=== PATIENT | male | born 1955 | race Caucasian/White ===

== ENCOUNTER 2018-03-07 16:03 | Emergency (ER) | payer MEDICARE, OTHER ==
[~2018-03-07] VITALS: Ht 188 cm; Wt 117.9 kg
[2018-03-07 16:56] LABS: BASOPHILS ABSOLUTE AUTO 0.07 K/mm3 (0.00-0.23); BASOPHILS PERCENT AUTO 1 % (0-2); EOSINOPHILS ABSOLUTE AUTO 0.23 K/mm3 (0.00-0.68); EOSINOPHILS PERCENT AUTO 3 % (0-6); Hematocrit 39.5 % (37.0-53.0); Hemoglobin 12.9 g/dL (13.5-17.5); IMMATURE GRAN ABSOLUTE AUTO 0.02 K/mm3 (0.00-0.10); IMMATURE GRAN PERCENT AUTO 0 % (0-1); LYMPHOCYTES ABSOLUTE AUTO 0.58 K/mm3 (0.84-5.20); LYMPHOCYTES PERCENT AUTO 7 % (21-46); MONOCYTES ABSOLUTE AUTO 0.62 K/mm3 (0.16-1.47); MONOCYTES PERCENT AUTO 7 % (4-13); Mean Corpuscular HGB 28.6 pg (26.0-34.0); Mean Corpuscular HGB Conc 32.7 g/dL (31.5-36.5); Mean Corpuscular Volume 88 fL (80-100); Mean Platelet Volume 9.8 fL (9.1-12.4); NEUTROPHILS PERCENT AUTO 82 % (41-73); Platelet Count 281 K/mm3 (150-400); RDW Coefficient Variation 12.7 % (11.7-14.2); RDW Standard Deviation 40.5 fL (35.1-46.3); Red Blood Cell Count 4.51 M/mm3 (4.30-5.90); White Blood Cell Count 8.42 K/mm3 (4.00-11.30)
[2018-03-07 17:21] LABS: Alanine Aminotransfer (ALT/SGP 24 U/L (12-78); Albumin, Blood 3.9 g/dL (3.4-5.0); Albumin/Globulin Ratio 1.1 (0.8-1.8); Alk Phos 78 U/L (50-136); Anion Gap 9 mmol/L (6-16); Aspartate Aminotrans (AST/SGOT 18 U/L (12-37); Bilirubin, Total 0.6 mg/dL (0.1-1.0); Blood Urea Nitrogen 10 mg/dL (8-24); Bun/Creatinine Ratio 13.4 (12.0-20.0); CO2, Blood 26 mmol/L (21-32); Calcium, Blood 8.5 mg/dL (8.5-10.1); Chloride, Blood 103 mmol/L (98-108); Creatinine, Blood 0.75 mg/dL (0.60-1.20); Globulin, Blood 3.7 g/dL (2.2-4.0); Glomerular Filtration Rate >60 (60-); Glucose, Blood 118 mg/dL (70-99); Sodium, Blood 138 mmol/L (136-145); Total Protein, Blood 7.6 g/dL (6.4-8.2)
[2018-03-07 17:25] LABS: Source, Urine Clean Catch
[2018-03-07 17:32] LABS: Appearance, Urine Clear (Clear); Bilirubin, Urine Neg (Neg); Blood, Urine Neg (Neg); Color, Urine Yellow (P-Yellow); Glucose Qualitative, Urine Neg (Neg); Ketones, Urine Neg (Neg); Leukocyte Esterase, Urine Neg (Neg); Nitrite, Urine Neg (Neg); Protein, Urine Neg (Neg); Specific Gravity, Urine 1.005 (1.003-1.022); Urobilinogen, Urine NORM (Normal)
[2018-03-07] MEDS ORDERED: LEVFLO500 PO (20:42)
== END 2018-03-07 20:55 | disposition home or self-care (01) ==
LOC: ER 16:03
PROVIDERS: Emergency Medicine
DX: J44.0 Chronic obstructive pulmonary disease with (acute) lower respiratory infection (principal); J20.9 Acute bronchitis, unspecified; I10 Essential (primary) hypertension; Z90.81 Acquired absence of spleen
CPT/HCPCS: 36415; 71046; 80053; 81003; 83605; 85025; 93005; 93010; 99284-25

== ENCOUNTER 2019-01-30 08:29 | Day surgery (SDC) | payer MEDICARE, OTHER ==
[~2019-01-30] VITALS: Ht 185.4 cm; Wt 122.3 kg
[~2019-01-30 08:29] MED LIST: ALBU3IS INH; ALBU90OI INH; BENZ100A PO; Cheratussin AC118 ML PO; IBUP800 PO; INCRUSE ELLI62.5 MCG INH; LEVFLO500 PO; PANT40 PO; Prednisone20 MG PO; XYZAL5 MG PO; ZESTORETIC 20-121 EA; ZESTORETIC 20-121 EA PO
== END 2019-01-30 11:40 | disposition home or self-care (01) ==
LOC: ORSCSDS 08:29
PROVIDERS: Internal Medicine Gastroenterology
PROC: 0DB68ZX Excision of Stomach, Via Natural or Artificial Opening Endoscopic, Diagnostic (ICD-10-PCS; principal; 2019-01-30 10:15)
PROC: 0DB58ZX Excision of Esophagus, Via Natural or Artificial Opening Endoscopic, Diagnostic (ICD-10-PCS; principal; 2019-01-30 10:15)
DX: K21.0 Gastro-esophageal reflux disease with esophagitis (principal); K29.70 Gastritis, unspecified, without bleeding; R10.9 Unspecified abdominal pain; K57.30 Diverticulosis of large intestine without perforation or abscess without bleeding; K64.1 Second degree hemorrhoids; I10 Essential (primary) hypertension; J44.9 Chronic obstructive pulmonary disease, unspecified; E66.01 Morbid (severe) obesity due to excess calories; Z68.35 Body mass index [BMI] 35.0-35.9, adult; Z79.899 Other long term (current) drug therapy
CPT/HCPCS: 88305; 88342; J2001; J2704; J7120

== ENCOUNTER 2019-12-14 08:36 | Emergency (ER) | payer MEDICARE, OTHER ==
[~2019-12-14] VITALS: Ht 185.4 cm; Wt 122.5 kg
[2019-12-14] MEDS ORDERED: BENZ100A PO (11:13)
== END 2019-12-14 11:22 | disposition home or self-care (01) ==
LOC: ER 08:36
DX: R05 Cough (principal); R06.02 Shortness of breath; I10 Essential (primary) hypertension; J44.9 Chronic obstructive pulmonary disease, unspecified; Z79.899 Other long term (current) drug therapy; Z79.51 Long term (current) use of inhaled steroids
CPT/HCPCS: 71045; 99284-25; U0003

== ENCOUNTER → 2020-09-25 | Outpatient (CLI) | payer MEDICARE, OTHER ==
[2020-09-25 12:58] LABS: Source, Urine Clean Catch
[2020-09-25 17:58] LABS: Appearance, Urine Clear (Clear); Bilirubin, Urine Neg (Neg); Blood, Urine Neg (Neg); Color, Urine Yellow (P-Yellow); Glucose Qualitative, Urine Neg (Neg); Ketones, Urine Neg (Neg); Leukocyte Esterase, Urine Neg (Neg); Nitrite, Urine Neg (Neg); Protein, Urine Neg (Neg); Urobilinogen, Urine NORM (Normal)
== END | disposition home or self-care (01) ==
LOC: LAB 12:55
PROVIDERS: Nurse Practitioner Family
DX: I10 Essential (primary) hypertension (principal)
CPT/HCPCS: 81003

== ENCOUNTER 2021-03-10 17:42 | Inpatient (IN) | payer MEDICARE, OTHER ==
[~2021-03-10] VITALS: Ht 185.4 cm; Wt 122.6 kg
[~2021-03-10 17:42] MED LIST changes: -ASPI81CH PO; -ATOR80 PO; -CARV3.125 PO; -FLUTICASONE PRO16 GM; -IBU800 M1 PO; -Incruse Ellipta 62.5 INH; -LISINOPRIL-HCT1 EACH PO; -PANTOPRAZOLE SO40 M2 PO; -PLAVIX75 MG PO; -Ventolin/Prove6.7 GM INH
[2021-03-10] MEDS ORDERED: Ventolin/Prove6.7 GM INH (18:56)
[2021-03-10] MEDS ORDERED: FLUTICASONE PRO16 GM (18:56)
[2021-03-10] MEDS ORDERED: IBU800 M1 PO (18:56)
[2021-03-10] MEDS ORDERED: Incruse Ellipta 62.5 INH (18:57)
[2021-03-10] MEDS ORDERED: LISINOPRIL-HCT1 EACH PO (18:57)
[2021-03-10] MEDS ORDERED: PANTOPRAZOLE SO40 M2 PO (18:57)
[2021-03-10 19:17] LABS: BASOPHILS ABSOLUTE AUTO 0.06 K/mm3 (0.00-0.23); BASOPHILS PERCENT AUTO 1 % (0-2); EOSINOPHILS PERCENT AUTO 2 % (0-6); Hematocrit 37.2 % (37.0-53.0); Hemoglobin 12.3 g/dL (13.5-17.5); IMMATURE GRAN ABSOLUTE AUTO 0.05 K/mm3 (0.00-0.10); IMMATURE GRAN PERCENT AUTO 0 % (0-1); LYMPHOCYTES ABSOLUTE AUTO 2.61 K/mm3 (0.84-5.20); LYMPHOCYTES PERCENT AUTO 23 % (21-46); MONOCYTES ABSOLUTE AUTO 0.88 K/mm3 (0.16-1.47); MONOCYTES PERCENT AUTO 8 % (4-13); Mean Corpuscular HGB 29.3 pg (26.0-34.0); Mean Corpuscular HGB Conc 33.1 g/dL (31.5-36.5); Mean Corpuscular Volume 89 fL (80-100); Mean Platelet Volume 10.2 fL (9.1-12.4); NEUTROPHILS PERCENT AUTO 67 % (41-73); Platelet Count 326 K/mm3 (150-400); RDW Coefficient Variation 13.1 % (11.7-14.2); RDW Standard Deviation 42.4 fL (35.1-46.3)
[2021-03-10 19:34] LABS: International Normalized Ratio 0.98; Prothrombin Time Results 10.6 Sec (9.7-11.5)
[2021-03-10 19:52] LABS: Alanine Aminotransfer (ALT/SGP 24 U/L (12-78); Albumin, Blood 3.6 g/dL (3.4-5.0); Alk Phos 74 U/L (50-136); Anion Gap 1 mmol/L (6-16); Aspartate Aminotrans (AST/SGOT 19 U/L (12-37); Bilirubin, Total 0.2 mg/dL (0.1-1.0); Blood Urea Nitrogen 20 mg/dL (8-24); CO2, Blood 28 mmol/L (21-32); Calcium, Blood 8.6 mg/dL (8.5-10.1); Chloride, Blood 111 mmol/L (98-108); Creatinine, Blood 0.87 mg/dL (0.60-1.20); Globulin, Blood 3.5 g/dL (2.2-4.0); Glomerular Filtration Rate >60 (60-); Glucose, Blood 111 mg/dL (70-99); Potassium, Blood 4.2 mmol/L (3.5-5.5); Sodium, Blood 140 mmol/L (136-145); Total Protein, Blood 7.1 g/dL (6.4-8.2)
[2021-03-10 20:35] LABS: Troponin I 0.621 ng/mL (0.000-0.040)
[2021-03-10 21:54] LABS: CHOL/HDL RATIO 6.4; Cholesterol 218 mg/dL (50-200); HDL Cholesterol 34 mg/dL (>39); LDL/HDL RATIO 3.9; Low Density Lipoprotein Chol 134 mg/dL (0-110); Triglycerides 252 mg/dL (30-160); Very Low Density Lipoprot Chol 50 mg/dL (6-32)
[2021-03-10 23:36] LABS: International Normalized Ratio 1.01; Prothrombin Time Results 10.9 Sec (9.7-11.5)
--- NOTE | 2021-03-11 07:09 | NUR ---
SUMMARY PT IS A&O X4, ON RA, VSS. DENIES CP/PRESSURE SINCE ADMISSION. PT HAS BEEN STARTED ON A HEPARIN GTT PER EMAR. HE IS INDEPENDENT IN THE ROOM, VOIDING WNL, NPO SINCE MIDNIGHT, CARDIOLOGY CONSULT TO BE CALLED THIS AM. HOSPITALIST NOTIFIED OF INCREASED TROPONIN OF 1.65 THROUGH THE HTE NIGHT, NO CHANGE IN PT'S CONDITION. REPORT GIVEN TO DAY RN, PT IS AWAKE, RESTING IN BED, CALL LIGHT IN REACH.
[2021-03-11 08:10] LABS: BASOPHILS ABSOLUTE AUTO 0.07 K/mm3 (0.00-0.23); BASOPHILS PERCENT AUTO 1 % (0-2); EOSINOPHILS ABSOLUTE AUTO 0.26 K/mm3 (0.00-0.68); EOSINOPHILS PERCENT AUTO 3 % (0-6); Hematocrit 37.9 % (37.0-53.0); Hemoglobin 12.4 g/dL (13.5-17.5); IMMATURE GRAN ABSOLUTE AUTO 0.04 K/mm3 (0.00-0.10); IMMATURE GRAN PERCENT AUTO 0 % (0-1); LYMPHOCYTES PERCENT AUTO 28 % (21-46); MONOCYTES ABSOLUTE AUTO 0.73 K/mm3 (0.16-1.47); MONOCYTES PERCENT AUTO 7 % (4-13); Mean Corpuscular HGB 28.7 pg (26.0-34.0); Mean Corpuscular HGB Conc 32.7 g/dL (31.5-36.5); Mean Corpuscular Volume 88 fL (80-100); Mean Platelet Volume 9.6 fL (9.1-12.4); NEUTROPHILS ABSOLUTE AUTO 6.02 K/mm3 (1.96-9.15); NEUTROPHILS PERCENT AUTO 61 % (41-73); Platelet Count 303 K/mm3 (150-400); RDW Coefficient Variation 13.1 % (11.7-14.2); RDW Standard Deviation 42.3 fL (35.1-46.3); Red Blood Cell Count 4.32 M/mm3 (4.30-5.90); White Blood Cell Count 9.92 K/mm3 (4.00-11.30)
[2021-03-11 08:35] LABS: Anion Gap 4 mmol/L (6-16); Blood Urea Nitrogen 18 mg/dL (8-24); Bun/Creatinine Ratio 25.2 (12.0-20.0); CO2, Blood 29 mmol/L (21-32); Calcium, Blood 8.5 mg/dL (8.5-10.1); Chloride, Blood 108 mmol/L (98-108); Creatinine, Blood 0.71 mg/dL (0.60-1.20); Glomerular Filtration Rate >60 (60-); Glucose, Blood 99 mg/dL (70-99); Potassium, Blood 3.9 mmol/L (3.5-5.5); Sodium, Blood 141 mmol/L (136-145)
--- NOTE | 2021-03-11 12:00 | NUR ---
PT REPORTS 6/10 CHEST PAIN/PRESSURE TO HIS SUBSTERNAL CHEST, RADIATING TO HIS LEFT SHOULDER, ARM AND BACK. SEE DOCUMENTED VITAL SIGNS. NIRTO GIVEN PER EMAR. MOBILE HOME LOT UTILITY WORKER MADE AWARE BY ERIKA, GRILL ATTENDANT. WILL CONTINUE TO MONITOR AND REASSESS.
--- NOTE | 2021-03-11 12:15 | NUR ---
UPDATE PT STATES CP IS /10 AND JUST FEELS LIKE "TIGHTNESS". PLAN FOR PT TO GO TO [facility] [employer] [facility]. WILL CONTINUE TO MONITOR CLOSELY. AT [facility].
--- NOTE | 2021-03-11 18:09 | NUR ---
SHIFT SUMMARY PT ALERT AND ORIENTED. VS STABLE. O2 SATS REMAIN ABOVE 90% ON RA. HR NSR. PT RETURNED FROM THE MAIL PROCESSING MACHINE OPERATOR AFTER TWO STENTS PLACED WITH RIGHT RADIAL SITE AND TR BAND IN PLACE. NO SIGNS OF BLEEDING, BRUISING, OR HEMATOMA. ARM BOARD IN PLACE. PT EDUCATED ON ARM RESTRICTIONS. AGGRASTAT WAS INFUSING UPON RETURN FROM THE MAIL PROCESSING MACHINE OPERATOR THAT WAS STARTED AT 1527 AND STOPPED AT [address] GARCIA. NS INFUSING PER ORDERS. PT COMPLAINED OF SEVERE BACK PAIN UPON RETURN AND WAS MEDICATED PER EMAR AND HEATING PAD PLACED TO BACK. WILL CONTINUE TO MONITOR CLOSELY AND REPORT TO ONCOMING RN. CALL LIGHT IN REACH.
--- NOTE | 2021-03-11 23:10 | NUR ---
PATIENT STATES THAT WHEN HE RETURNED TO BED FROM THE BATHROOM AT APPROX 0, HE FELT "A LITTLE LIGHTHEADED AND NAUSEAS". HE DIDN'T CALL BECAUSE "I DIDN'T WANT TO BOTHER YOU." STATES THAT HE STILL FEELS "A LITTLE NAUSEAS." DID NOT WANT MEDICATIONS. GAVE HIM ASHWIN MIST PER HIS REQUEST. HE DENIED LIGHTHEADEDNESS AT THIS TIME. HIS HEART RATE DID GO UP TO THE LOW 100'S WHEN HE WAS UP IN THE BATHROOM. ENCOURAGED HIM TO CALL NEXT TIME HE NEEDED TO GET UP AND I WOULD GO WITH HIM.
--- NOTE | 2021-03-12 03:00 | NUR ---
PATIENT UP TO BATHROOM WITH SBA. DENIED LIGHTHEADEDNESS. HEARTRATE UP TO THE 80'S. STATES THAT HE FEELS "A LITTLE" NAUSEAS. REQUESTED CRACKERS. CRACKERS GIVEN.
[2021-03-12 03:55] LABS: BASOPHILS ABSOLUTE AUTO 0.05 K/mm3 (0.00-0.23); BASOPHILS PERCENT AUTO 0 % (0-2); EOSINOPHILS ABSOLUTE AUTO 0.19 K/mm3 (0.00-0.68); EOSINOPHILS PERCENT AUTO 2 % (0-6); Hematocrit 35.7 % (37.0-53.0); Hemoglobin 11.6 g/dL (13.5-17.5); IMMATURE GRAN ABSOLUTE AUTO 0.05 K/mm3 (0.00-0.10); IMMATURE GRAN PERCENT AUTO 0 % (0-1); LYMPHOCYTES ABSOLUTE AUTO 2.32 K/mm3 (0.84-5.20); LYMPHOCYTES PERCENT AUTO 21 % (21-46); MONOCYTES PERCENT AUTO 8 % (4-13); Mean Corpuscular HGB 28.3 pg (26.0-34.0); Mean Corpuscular HGB Conc 32.5 g/dL (31.5-36.5); Mean Corpuscular Volume 87 fL (80-100); Mean Platelet Volume 9.4 fL (9.1-12.4); NEUTROPHILS ABSOLUTE AUTO 7.68 K/mm3 (1.96-9.15); NEUTROPHILS PERCENT AUTO 69 % (41-73); Platelet Count 308 K/mm3 (150-400); RDW Standard Deviation 41.1 fL (35.1-46.3); White Blood Cell Count 11.19 K/mm3 (4.00-11.30)
--- NOTE | 2021-03-12 03:55 | NUR ---
CALLED DR. MARCUM AND NOTIFIED HER PATIENT REPORTING "BURNING" IN HIS ABDOMEN AND REQUESTING MAALOX. ORDERS RECEIVED FOR MAALOX.
[2021-03-12 04:13] LABS: Alanine Aminotransfer (ALT/SGP 23 U/L (12-78); Albumin, Blood 3.3 g/dL (3.4-5.0); Albumin/Globulin Ratio 0.9 (0.8-1.8); Alk Phos 60 U/L (50-136); Anion Gap 4 mmol/L (6-16); Aspartate Aminotrans (AST/SGOT 17 U/L (12-37); Bilirubin, Total 0.6 mg/dL (0.1-1.0); Blood Urea Nitrogen 20 mg/dL (8-24); Bun/Creatinine Ratio 25.9 (12.0-20.0); CO2, Blood 29 mmol/L (21-32); Calcium, Blood 8.3 mg/dL (8.5-10.1); Chloride, Blood 105 mmol/L (98-108); Creatinine, Blood 0.77 mg/dL (0.60-1.20); Globulin, Blood 3.5 g/dL (2.2-4.0); Glomerular Filtration Rate >60 (60-); Glucose, Blood 109 mg/dL (70-99); Potassium, Blood 3.7 mmol/L (3.5-5.5); Sodium, Blood 138 mmol/L (136-145); Total Protein, Blood 6.8 g/dL (6.4-8.2)
--- NOTE | 2021-03-12 07:54 | NUR ---
SHIFT SUMMARY: PATIENT A/OX3. MEDICATED FOR BURNING PAIN IN ABDOMEN WITH MAALOX. HAD EPISODE WHERE HE WAS LIGHTHEADED AND NAUSEAS BUT HE DID NOT REPORT THIS UNTIL APPROX 2 HOURS AFTER IT HAPPENED, AT THAT TIME HEART RATE WAS UP INTO THE LOW 100'S. HE DID NOT FEEL THIS WAY WHEN HE GOT UP TO THE BATHROOM WITH ME AT A LATER TIME. TR BAND REMOVED AND DRESSING PLACED OVER SITE, NO S/S HEMATOMA OR BLEEDING. ARMBOARD IN PLACE TO R WRIST. PATIENT NEEDS REMINDERS TO NOT USE R WRIST. POSSIBLE DISCHARGE HOME TODAY. REPORT GIVEN TO ONCOMING RN.
[2021-03-12] MEDS ORDERED: ASPI81CH PO ×2 (11:47→11:49)
[2021-03-12] MEDS ORDERED: ATOR80 PO (11:49)
[2021-03-12] MEDS ORDERED: PLAVIX75 MG PO (11:50)
[2021-03-12] MEDS ORDERED: CARV3.125 PO (11:50)
--- NOTE | 2021-03-12 12:54 | NUR ---
UPDATE PT ALERT AND ORIENTED. VS STABLE. ORDERS FOR DC RECEIVED. PT PROVIDED DC INSTRUCTIONS AND EDUCATED ON NEW MEDICATIONS. ALL QUESTIONS ANSWERED. PT TAKEN OUT BY FREEDOM
--- NOTE | 2021-03-12 13:51 | NUR ---
UPDATE 03/12/2021: PER CHART REVIEW WITH DR. COFFEY THIS AM, PT. APPROPRIATE FOR DISCHARGE HOME. DISCUSSED DISCHARGE PLANNING WITH PT. HIS WILL BE TRANSPORTING HIM HOME THIS AFTERNOON. PT. DENIED CONCERNS WITH SAFETY OR MOBILITY WITHIN THE HOME. DENIED NEED FOR DME. PT. PT. WILL NEED TO SCHEDULE HOSPITAL F/U WITHIN ONE WEEK WITH PCP. AT THAT TIME DR. COFFEY HAS RECOMMENDED DISCUSSING IBU USE. PT. STATED THAT HE IS TAKING 800 MG IBU 1-2 PER [address]N PAIN. [address] COFFEY ADIVSED PT. THAT SHE WOULD RECOMMEND THAT HE D/C THE IBU. PT. CONCERNED WITH MANAGING HIS PAIN WITHOUT THE IBU. HE STATES THAT IBU IS THE ONLY THING THAT HELPS. DR. COFFEY DID DISSCUSS THE RISKS OF CONTINUING IBU. PT. WAS ALSO ENCOURAGED TO STICK TO A LOW CARB DIET. PT. WAS REFERRED PREVIOUSLY TO [facility]. HE WOULD BENEFIT FROM ADDITIONAL INFO REGARDING DIET. UPDATE 03/11/21: PER CHART REVIEW THIS WITH DR. COFFEY, CARIOLOGY CONSULT ORDERED AND PT. WILL BE GOING TO IGNITION SPECIALIST TODAY.
== END 2021-03-12 12:21 | disposition home or self-care (01) | DRG 247 ==
LOC: ER 17:42 → PCU 21:26
PROVIDERS: Family Medicine; Pharmacist; Student in an Organized Health Care Education/Training Program; ADMIT Family Medicine
PROC: 027035Z Dilation of Coronary Artery, One Artery with Two Drug-eluting Intraluminal Devices, Percutaneous Approach (ICD-10-PCS; principal; 2021-03-11)
PROC: B2111ZZ Fluoroscopy of Multiple Coronary Arteries using Low Osmolar Contrast (ICD-10-PCS; 2021-03-11)
DX: I21.4 Non-ST elevation (NSTEMI) myocardial infarction (principal); J44.9 Chronic obstructive pulmonary disease, unspecified; I10 Essential (primary) hypertension; E78.5 Hyperlipidemia, unspecified; D72.829 Elevated white blood cell count, unspecified; D64.9 Anemia, unspecified; K21.9 Gastro-esophageal reflux disease without esophagitis; E66.9 Obesity, unspecified; Z68.34 Body mass index [BMI] 34.0-34.9, adult; Z87.891 Personal history of nicotine dependence; Z98.890 Other specified postprocedural states; Z79.899 Other long term (current) drug therapy
CPT/HCPCS: 36415; 71046; 80048; 80053; 80061; 83880; 84443; 84484; 85025; 85347; 85610; 85730; 93005; 93010; 93454; 94640; 94762; 99152; 99153; 99285-25; A9270; C1725; C1769; C1874; C1887; C1894; C8929; C9600; J1644; J2250; J2310; J3010; J3246; J7030; J7040; Q9957; Q9967

== ENCOUNTER → 2021-03-10 | Outpatient (CLI) | payer MEDICARE, OTHER ==
[~2021-03-10] MED LIST changes: +ASPI81CH PO; +ATOR80 PO; +CARV3.125 PO; +FLUTICASONE PRO16 GM; +IBU800 M1 PO; +Incruse Ellipta 62.5 INH; +LISINOPRIL-HCT1 EACH PO; +PANTOPRAZOLE SO40 M2 PO; +PLAVIX75 MG PO; +Ventolin/Prove6.7 GM INH
[2021-03-10 16:52] LABS: BASOPHILS ABSOLUTE AUTO 0.06 K/mm3 (0.00-0.23); BASOPHILS PERCENT AUTO 1 % (0-2); EOSINOPHILS ABSOLUTE AUTO 0.18 K/mm3 (0.00-0.68); EOSINOPHILS PERCENT AUTO 2 % (0-6); Hematocrit 37.8 % (37.0-53.0); Hemoglobin 12.3 g/dL (13.5-17.5); IMMATURE GRAN ABSOLUTE AUTO 0.06 K/mm3 (0.00-0.10); IMMATURE GRAN PERCENT AUTO 1 % (0-1); LYMPHOCYTES ABSOLUTE AUTO 2.15 K/mm3 (0.84-5.20); LYMPHOCYTES PERCENT AUTO 19 % (21-46); MONOCYTES ABSOLUTE AUTO 0.96 K/mm3 (0.16-1.47); MONOCYTES PERCENT AUTO 8 % (4-13); Mean Corpuscular HGB 28.3 pg (26.0-34.0); Mean Corpuscular HGB Conc 32.5 g/dL (31.5-36.5); Mean Corpuscular Volume 87 fL (80-100); Mean Platelet Volume 9.4 fL (9.1-12.4); NEUTROPHILS ABSOLUTE AUTO 8.06 K/mm3 (1.96-9.15); NEUTROPHILS PERCENT AUTO 70 % (41-73); Platelet Count 312 K/mm3 (150-400); RDW Coefficient Variation 13.1 % (11.7-14.2); RDW Standard Deviation 41.5 fL (35.1-46.3); Red Blood Cell Count 4.34 M/mm3 (4.30-5.90); White Blood Cell Count 11.47 K/mm3 (4.00-11.30)
[2021-03-10 17:16] LABS: Anion Gap 6 mmol/L (6-16); Blood Urea Nitrogen 18 mg/dL (8-24); Bun/Creatinine Ratio 18.8 (12.0-20.0); CO2, Blood 28 mmol/L (21-32); Calcium, Blood 8.3 mg/dL (8.5-10.1); Chloride, Blood 108 mmol/L (98-108); Creatinine, Blood 0.96 mg/dL (0.60-1.20); Glomerular Filtration Rate >60 (60-); Glucose, Blood 103 mg/dL (70-99); Potassium, Blood 3.9 mmol/L (3.5-5.5); Sodium, Blood 142 mmol/L (136-145); Thyroid Stimulating Hormone 2.329 uIU/mL (0.360-4.800)
== END | disposition home or self-care (01) ==
LOC: LAB SHORT 16:47 → LAB 16:47
PROVIDERS: Physician Assistant Surgical
DX: R07.9 Chest pain, unspecified (principal); R53.83 Other fatigue
CPT/HCPCS: 80048; 84443; 84484; 85025

== ENCOUNTER → 2021-10-29 | Outpatient (CLI) | payer MEDICARE, OTHER ==
[~2021-10-29] MED LIST changes: +ASPI81CH PO; +ATOR80 PO; +CARV3.125 PO; +FLUTICASONE PRO16 GM; +IBU800 M1 PO; +IPRAT-ALBUT 0.5-3 ML INH; +Incruse Ellipta 62.5 INH; +LISINOPRIL-HCT1 EACH PO; +PANTOPRAZOLE SO40 M2 PO; +PLAVIX75 MG PO; +Ventolin/Prove6.7 GM INH
[2021-10-29 14:28] LABS: Adenovirus F 40/41 Not Detected (NOT DETECT); Astrovirus Not Detected (NOT DETECT); Campylobacter Sp Not Detected (NOT DETECT); Cryptosporidium Not Detected (NOT DETECT); Cyclospora Cayetanensis Not Detected (NOT DETECT); E. Coli O157 Not Detected (NOT DETECT); Entamoeba Histolytica Not Detected (NOT DETECT); Enteroaggregative E. coli-EAEC Not Detected (NOT DETECT); Enteropathogenic E. coli-EPEC Not Detected (NOT DETECT); Enterotoxigenic E. coli-ETEC Not Detected (NOT DETECT); Giardia Lamblia Not Detected (NOT DETECT); Norovirus GI/GII Not Detected (NOT DETECT); Plesiomonas Shigelloides Not Detected (NOT DETECT); Rotavirus A Not Detected (NOT DETECT); Salmonella Sp Not Detected (NOT DETECT); Sapovirus Not Detected (NOT DETECT); Shiga Toxin-prod E. coli-STEC Not Detected (NOT DETECT); Shigella/Enteroin E. coli-EIEC Not Detected (NOT DETECT); Vibrio Cholerae Not Detected (NOT DETECT); Vibrio Sp Not Detected (NOT DETECT); Yersinia Enterocolitica Not Detected (NOT DETECT)
== END | disposition home or self-care (01) ==
LOC: LAB 09:10 → LAB SHORT 09:10 → LAB FUT 10-23 12:30
PROVIDERS: Internal Medicine Gastroenterology
DX: R19.7 Diarrhea, unspecified (principal)
CPT/HCPCS: 0097U

== ENCOUNTER 2021-11-05 11:16 | Day surgery (SDC) | payer MEDICARE, OTHER ==
[~2021-11-05] VITALS: Ht 185.4 cm; Wt 111.1 kg
== END 2021-11-05 14:35 | disposition home or self-care (01) ==
LOC: ORSCSDS 11:16
PROVIDERS: Internal Medicine Gastroenterology
PROC: 0DBE8ZX Excision of Large Intestine, Via Natural or Artificial Opening Endoscopic, Diagnostic (ICD-10-PCS; principal; 2021-11-05 13:00)
DX: R19.7 Diarrhea, unspecified (principal); K57.30 Diverticulosis of large intestine without perforation or abscess without bleeding; I10 Essential (primary) hypertension; I25.10 Atherosclerotic heart disease of native coronary artery without angina pectoris; K21.9 Gastro-esophageal reflux disease without esophagitis; J45.909 Unspecified asthma, uncomplicated; Z79.02 Long term (current) use of antithrombotics/antiplatelets; Z79.899 Other long term (current) drug therapy; E66.9 Obesity, unspecified; Z68.32 Body mass index [BMI] 32.0-32.9, adult; I25.2 Old myocardial infarction
CPT/HCPCS: 88305; J2704; J7120

== ENCOUNTER → 2023-03-31 | Outpatient (CLI) | payer MEDICARE, OTHER | END | disposition home or self-care (01) | LOC: LAB SHORT 07:30 → LAB 07:30 | DX: R19.7 Diarrhea, unspecified (principal) | CPT/HCPCS: 87338 ==

== ENCOUNTER 2023-07-14 13:19 | Day surgery (SDC) | payer MEDICARE, OTHER ==
[~2023-07-14] VITALS: Ht 185.4 cm; Wt 117.0 kg
[2023-07-14] MEDS ORDERED: METO25 (13:40)
[2023-07-14] MEDS ORDERED: ASPI81CH (13:41)
--- NOTE | 2023-07-14 16:06 | NUR ---
07/14/23 1250 PATO BHAKTA PT IN WITH PT DURING DR. MARADIAGA POSTOP. DISCUSSED THAT HE NEEDED TO HAVE A CT ABD DONE. PUT THE INFORMATION INTO SYSTEM TO HAVE SCHEDULED. INFORMATION WAS WRITTEN ON DC INSTRUCTIONS AND I WENT OVER THAT PT/ TO CONTACT DR. MARADIAGA OFFICE IF THEY HAD NOT RECEIVED NOTIFICATION RE CT SCAN IN 1 WEEK. BOTH PT AND ACKNOWLEDGED UNDERSTANDING.
[2023-07-14 16:08] VITALS: BP 101/51
== END 2023-07-14 15:30 | disposition home or self-care (01) ==
LOC: ORSCSDS 13:19
PROVIDERS: Internal Medicine Gastroenterology
PROC: 0DB58ZX Excision of Esophagus, Via Natural or Artificial Opening Endoscopic, Diagnostic (ICD-10-PCS; principal; 2023-07-14 15:00)
DX: K21.00 Gastro-esophageal reflux disease with esophagitis, without bleeding (principal); I25.2 Old myocardial infarction; I10 Essential (primary) hypertension; I25.10 Atherosclerotic heart disease of native coronary artery without angina pectoris; Z68.34 Body mass index [BMI] 34.0-34.9, adult; Z79.02 Long term (current) use of antithrombotics/antiplatelets
CPT/HCPCS: 88305; J0461; J1980; J2001; J2405; J2704; Q9968